=== PATIENT | female | born 1965 | race African-American/Black ===

== ENCOUNTER 2018-03-18 12:34 | Emergency (ER) | payer OTHER, SELFPAY ==
[2018-03-18] MEDS ORDERED: Ibuprofen 800 MG TAB ONE ×2 (13:08→13:14)
[2018-03-18] MEDS ORDERED: Amoxicillin/Potassium Clav 875 MG TAB ONE (13:08)
== END 2018-03-18 13:17 | disposition home or self-care (01) ==
LOC: NAV ERS 12:34
DX: J01.90 Acute sinusitis, unspecified (principal); I10 Essential (primary) hypertension; J45.909 Unspecified asthma, uncomplicated; F41.9 Anxiety disorder, unspecified; F31.9 Bipolar disorder, unspecified; Z79.899 Other long term (current) drug therapy
CPT/HCPCS: 99283

== ENCOUNTER 2020-03-26 09:30 | Emergency (ER) | payer SELFPAY ==
--- NOTE | 2020-03-26 10:31 | RAD ---
Exam:2 views left humerus HISTORY: Trauma. Pain. Injury COMPARISON: None FINDINGS: Comminuted oblique fracture involving the humeral diaphysis. Associated soft tissue swellin g. IMPRESSION: Fracture with associated soft tissue swelling.
--- NOTE | 2020-03-26 10:32 | RAD ---
Exam:Left elbow 2 views HISTORY: Trauma. Pain COMPARISON: None FINDINGS: Limited 2 views left elbow due to patient position. No obvious fractures or joint effusion. IMPRESSION: No obvious fractures or joint effusion.
[2020-03-26] MEDS ORDERED: Ketorolac Tromethamine 60 MG/2 ML VIAL ONE (10:59)
== END 2020-03-26 11:20 | disposition home or self-care (01) ==
LOC: NAV ERS 09:30
DX: S42.352A Displaced comminuted fracture of shaft of humerus, left arm, initial encounter for closed fracture (principal); I10 Essential (primary) hypertension; J45.909 Unspecified asthma, uncomplicated; F17.290 Nicotine dependence, other tobacco product, uncomplicated; F31.9 Bipolar disorder, unspecified; F41.9 Anxiety disorder, unspecified; Z79.899 Other long term (current) drug therapy; Z79.51 Long term (current) use of inhaled steroids; W19.XXXA Unspecified fall, initial encounter
CPT/HCPCS: 24500; 96372; J1885

== ENCOUNTER 2023-01-02 14:23 | Emergency (ER) | payer MEDICARE ==
[2023-01-02] MEDS ORDERED: methylPREDNISolone Sod Succ/PF 125 MG/2 ML VIAL ONE (14:56)
== END 2023-01-02 15:06 | disposition home or self-care (01) ==
LOC: NAV ERS 14:23
DX: M54.12 Radiculopathy, cervical region (principal); I10 Essential (primary) hypertension; F17.210 Nicotine dependence, cigarettes, uncomplicated; J45.909 Unspecified asthma, uncomplicated; Z79.899 Other long term (current) drug therapy
CPT/HCPCS: 96372; 99282; J2930